=== PATIENT | female | born 1995 | race Caucasian/White ===

== ENCOUNTER 2017-02-21 17:16 | Emergency (ER) | payer OTHER ==
[~2017-02-21] VITALS: Ht 165.1 cm; Wt 85.1 kg
[2017-02-21 17:23] VITALS: Ht 165.1 cm; Wt 85.1 kg
[2017-02-21] MEDS ORDERED: BCPILLS PO (17:48)
[2017-02-21 18:04] LABS: BASO % 0.3 %; BASO ABS # 0.03 K/uL (0-0.2); COMPLETE YES; EOS % 0.9 %; HEMATOCRIT 43.7 % (37-47); IG% 0.2 %; LYMPH % 31.8 %; LYMPH ABS # 2.79 K/uL (1.2-3.4); MEAN CELL VOLUME 85.9 fL (80-100); MEAN CORPUSCULAR HEMOGLOBIN 29.3 pg (25-34); MEAN CORPUSCULAR HGB CONC 34.1 g/dl (32-36); MEAN PLATELET VOLUME 9.2 fL (7.4-10.4); MONO % 5.4 %; NEUT % 61.4 %; PLATELET COUNT 408 K/uL (130-400); RED BLOOD COUNT 5.09 M/uL (4.2-5.4); WHITE BLOOD COUNT 8.78 K/uL (4.8-10.8)
[2017-02-21 18:14] LABS: PARTIAL THROMBOPLASTIN RATIO 1.1; PROTHROMBIN TIME (PATIENT) 10.5 SECONDS (9.0-12.0)
--- NOTE | 2017-02-21 18:14 | DIAGNOSTIC IMAGING REPORT ---
RIGHT TIBIA AND FIBULA 2 VIEWS CLINICAL HISTORY: Right leg pain. No reported history of trauma. FINDINGS: AP and lateral views of the right tibia and fibula are obtained. No prior studies are available for comparison at the time of dictation. The skeletal structures are well mineralized. No fracture is seen. The knee and ankle joints are grossly maintained. The overlying soft tissues are within normal limits. IMPRESSION: Unremarkable radiographic assessment of the right tibia and fibula. Electronically signed by: Rodriguez Cosme M.D. 02/21/2017 6:13 PM Dictated Date/Time: 02/21/2017 6:12 PM
[2017-02-21 18:23] LABS: CALCIUM 10.3 mg/dl (8.5-10.1); CREATININE 0.82 mg/dl (0.60-1.20); POTASSIUM 4.3 mmol/L (3.5-5.1)
[2017-02-21 18:29] LABS: PREG INTERNAL NEGATIVE QC NEG CLEAR BACKGROUND; PREG INTERNAL POSITIVE QC POS CONTROL LINE
--- NOTE | 2017-02-21 19:44 | DIAGNOSTIC IMAGING REPORT ---
ULTRASOUND RIGHT LOWER EXTREMITY VENOUS CLINICAL HISTORY: Right leg pain and swelling. COMPARISON STUDY: No priors. TECHNIQUE: Real-time, grayscale, and color Doppler sonography of the deep veins of the right lower extremity was performed from the inguinal crease to the calf. Compression and augmentation were utilized. FINDINGS: There is no sonographic evidence of deep venous thrombosis identified in the right lower extremity. The common femoral, superficial femoral, and popliteal veins are patent and normally compressible. The greater saphenous vein and the profunda femoris vein at the junction with the common femoral vein are clear. The visualized calf veins are patent. IMPRESSION: There is no sonographic evidence of deep venous thrombosis identified in the right lower extremity. Electronically signed by: Rodriguez Cosme M.D. 02/21/2017 7:43 PM Dictated Date/Time: 02/21/2017 7:43 PM
[2017-02-21 20:19] VITALS: BP 116/91; PULSE 95; TEMP 36.7; O2SAT 99
--- NOTE | 2017-02-21 20:41 | EMERGENCY ROOM VISIT NOTE ---
ED Visit Note First contact with patient: 17:27 Chief Complaint: Right lower leg pain. History of Present Illness: Ms. Granger is a 21-year-old white female who ambulates into the male friend complaining of right lower leg pain over the proximal, anterior/medial right lower leg. Patient reports she had an acute onset of pain over the right proximal tibia 2 days ago. She reports she did not injure her leg at that time. She reports for the last 2 days she has had a constant achy sensation in this area. She rates this constant pain a 4/10. Then intermittently she reports her pain escalates and becomes sharp and rates this discomfort 7/10. She has not identified anything that always causes a sharp pain. She has not identified any alleviating factors. She has not taken any medications for pain prior to arrival at the hospital. She reports associated with her pain night before bed she felt the lower leg was swollen. She denies fevers, chills, sweats, skin eruptions, skin color changes, previous significant injuries or surgeries to the leg, hip pain, knee pain, ankle pain, leg weakness/numbness/tingling, chest pain, shortness of breath, palpitations, orthopnea, recent surgery/inactivity/extended travel, estrogen and control use. Review of Systems: As noted above in history of present illness. 8 body systems were reviewed and found to be negative as noted above. Past Medical History: Asthma. Current Medications: control. Allergies to Medications: Patient denies. Social History: Patient is not employed; she lives with her parents and feels safe in her home environment; she denies tobacco use and admits to alcohol use. Physical Examination: Vital Signs: Date Time Temp Pulse Resp B/P (MAP) Pulse Ox O2 Delivery O2 Flow Rate FiO2 02/21/17 20:19 36.7 95 18 116/91 99 02/21/17 17:23 36.7 104 18 139/83 99 Room Air GENERAL: 21-year-old female in mild distress due to pain, nontoxic-appearing, afebrile and hemodynamically stable. NEUROLOGICAL: Awake, alert and oriented to person, place and time. Answering questions appropriately and following commands. Normal gait. Good hand eye coordination. No focal motor or sensory deficits. SKIN: Warm, dry and pink. No soft tissue eruptions or trauma noted. HEENT: Atraumatic and normocephalic. THORAX: Lungs sounds are clear to auscultation and equal bilaterally with symmetrical chest wall. No crepitus, tenderness, subcutaneous air or deformities noted. HEART: Regular rate and rhythm. No gallops, rubs or murmurs are appreciated. RIGHT LOWER EXTREMITY: No gross bony deformity. No tenderness over the hip, knee, ankle or foot. Mild tenderness inferior and medially of the knee over the tibia. I do not appreciate any bony deformity, bony crepitus, swelling or ecchymosis. There is no dependent edema. I do not appreciate any calf tenderness and cords. She has full range of motion in flexion and extension of the knee, dorsiflexion and plantar flexion of the ankle against resistance. Throughout the foot the skin was warm and pink and capillary refill is brisk. She is able to distinguish light sensations through all dermatomes. EXTREMITIES: Moves all extremities well on command and with purpose. All distal neurovascular statuses are intact and equal bilaterally. No calf tenderness or cords. ED Course: Patient is assessed as noted above. Patient's medication list was reviewed. Patient was offered pain medication and refused. Laboratory Testing: Results Past 24 Hours Test 02/21/17 17:55 Range/Units White Blood Count 8.78 4.8-10.8 K/uL Red Blood Count 5.09 4.2-5.4 M/uL Hemoglobin 14.9 12.0-16.0 g/dL Hematocrit 43.7 37-47 % Mean Corpuscular Volume 85.9 80-100 fL Mean Corpuscular Hemoglobin 29.3 25-34 pg Mean Corpuscular Hemoglobin Concent 34.1 32-36 g/dl Platelet Count 408 130-400 K/uL Mean Platelet Volume 9.2 7.4-10.4 fL Neutrophils (%) (Auto) 61.4 % Lymphocytes (%) (Auto) 31.8 % Monocytes (%) (Auto) 5.4 % Eosinophils (%) (Auto) 0.9 % Basophils (%) (Auto) 0.3 % Neutrophils # (Auto) 5.39 1.4-6.5 K/uL Lymphocytes # (Auto) 2.79 1.2-3.4 K/uL Monocytes # (Auto) 0.47 0.11-0.59 K/uL Eosinophils # (Auto) 0.08 0-0.5 K/uL Basophils # (Auto) 0.03 0-0.2 K/uL RDW Standard Deviation 40.1 36.4-46.3 fL RDW Coefficient of Variation 12.7 11.5-14.5 % Immature Granulocyte % (Auto) 0.2 % Immature Granulocyte # (Auto) 0.02 0.00-0.02 K/uL Prothrombin Time 10.5 9.0-12.0 SECONDS Prothromb Time International Ratio 1.0 0.9-1.1 Activated Partial Thromboplast Time 27.9 21.0-31.0 SECONDS Partial Thromboplastin Ratio 1.1 Sodium Level 140 136-145 mmol/L Potassium Level 4.3 3.5-5.1 mmol/L Chloride Level 106 98-107 mmol/L Carbon Dioxide Level 25 21-32 mmol/L Anion Gap 9.0 3-11 mmol/L Blood Urea Nitrogen 10 7-18 mg/dl Creatinine 0.82 0.60-1.20 mg/dl Est Creatinine Clear Calc Drug Dose 114.9 ml/min Estimated GFR () 116.9 Estimated GFR (Non- 100.9 BUN/Creatinine Ratio 12.0 10-20 Random Glucose 92 70-99 mg/dl Calcium Level 10.3 8.5-10.1 mg/dl Human Chorionic Gonadotropin, Qual NEG NEG Right Tibia/Fibula X-Rays: Were read by myself and the radiologist showing no acute fractures. No bony abnormalities. Right Leg Venous Doppler Ultrasound: Was reviewed by myself and read by the radiologist showing no deep vein thromboses. Patient was educated about today's findings and instructed on her treatment plan ; she verbalizes understanding and agreement with this plan. Clinical Impression: Right lower leg pain. Decision-Making: Initially my differential diagnosis I consider bony fracture, muscle strain, deep vein thrombus, bony tumor, infection and other causes. Disposition: Patient discharged home in stable condition accompanied by a male friend; prior to departure she was reassessed and subjectively reported she was feeling better and rated her discomfort 1/10. Plan: Patient was encouraged to alternate ibuprofen and acetaminophen as needed for pain. Patient was encouraged to raise her leg at rest for swelling. Patient was encouraged to follow-up with her PCP for recheck. Patient was encouraged return to the ED for worsening pain, worsening swelling, leg weakness/numbness/tingling, fevers or any new/concerning symptoms.
== END 2017-02-21 20:20 | disposition home or self-care (01) ==
LOC: C.EDB 17:20 → C.EDD 20:20
DX: M79.604 Pain in right leg (principal)